=== PATIENT | male | born 1975 | race Caucasian/White ===

== ENCOUNTER 2016-07-08 07:55 | Emergency (ER) | payer OTHER ==
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
[2016-07-08 10:51] VITALS: BP 148/88
== END 2016-07-08 10:41 | disposition home or self-care (01) ==
LOC: ER 07:55
DX: K08.89 Other specified disorders of teeth and supporting structures (principal); F17.210 Nicotine dependence, cigarettes, uncomplicated
CPT/HCPCS: 99282

== ENCOUNTER 2016-10-06 04:35 | Emergency (ER) | payer OTHER ==
--- NOTE | 2016-10-06 05:22 | ER Document Report ---
Doctor's Note Notes: 10/06/16 05:20 I did a quick triage evaluation on patient. Patient is a 41-year-old male who is brought in by medics. The only history I have is that the patient was showing hallucinations and violent behavior. The Counts Include [address] At [facility]'s department was on scene and called paramedics. Paramedics got there and gave him 5 mg of Haldol and 50 mg of Benadryl. Patient is now fully sedated and unable to give me any history. Pupils are equal and reactive to light. Heart is regular rate and rhythm. Lung sanderson are clear. Baseline labs will be ordered. Patient will be reevaluated by oncoming physician when he is awake and no longer sedated.
[2016-10-06 06:24] LABS: ABSOLUTE EOSINOPHILS # (AUTO) 0.1 10^3/uL (0.0-0.6); ABSOLUTE LYMPHOCYTES (AUTO) 1.7 10^3/uL (0.5-4.7); ABSOLUTE MONOCYTES (AUTO) 1.4 10^3/uL (0.1-1.4); BASOPHILS % (AUTO) 0.3 % (0-2); EOSINOPHILS % (AUTO) 0.9 % (0-6); HEMATOCRIT 42.6 % (37.9-51.0); HEMOGLOBIN 14.1 g/dL (13.5-17.0); HGB HCT DIFFERENCE -0.3; LYMPHOCYTES % (AUTO) 12.1 % (13-45); MEAN CORPUSCULAR HEMOGLOBIN 26.7 pg (27.0-33.4); MEAN CORPUSCULAR HGB CONC 33.1 g/dL (32.0-36.0); MEAN CORPUSCULAR VOLUME 81 fl (80-97); MONOCYTES % (AUTO) 9.6 % (3-13); RED BLOOD COUNT 5.28 10^6/uL (4.35-5.55); RED CELL DISTRIBUTION WIDTH 13.4 % (11.5-14.0); SEGMENTED NEUTROPHILS % (AUTO) 77.1 % (42-78); WHITE BLOOD COUNT 14.3 10^3/uL (4.0-10.5)
[2016-10-06 06:39] LABS: ALANINE AMINOTRANSFERASE 45 U/L (21-72); ALBUMIN 4.8 g/dL (3.5-5.0); ALKALINE PHOSPHATASE 95 U/L (38-126); ANION GAP 13 (5-19); ASPARTATE AMINO TRANSFERASE 32 U/L (17-59); BILIRUBIN,DIRECT 0.4 mg/dL (0.0-0.4); BILIRUBIN,TOTAL 0.8 mg/dL (0.2-1.3); BLOOD UREA NITROGEN 24 mg/dL (7-20); CALCIUM 10.1 mg/dL (8.4-10.2); CARBON DIOXIDE 27 mmol/L (22-30); CHLORIDE 103 mmol/L (98-107); CREATININE RESULT 1.18 mg/dL (0.52-1.25); GLUCOSE 104 mg/dL (75-110); POTASSIUM 4.5 mmol/L (3.6-5.0); SODIUM 143.3 mmol/L (137-145); TOTAL PROTEIN 8.2 g/dL (6.3-8.2)
[2016-10-06 06:45] LABS: ALCOHOL < 10 mg/dL (NONE DETECTED)
[2016-10-06 07:26] LABS: URINE BARBITURATES SCREEN NEGATIVE; URINE METHADONE SCREEN NEGATIVE; URINE OPIATES LOW NEGATIVE; URINE PHENCYCLIDINE SCREEN NEGATIVE
[2016-10-06 07:28] LABS: APPEARANCE,URINE SLIGHTLY-CLOUDY; BILIRUBIN,URINE NEGATIVE (NEGATIVE); GLUCOSE, URINE NEGATIVE (NEGATIVE); KETONES,URINE TRACE mg/dL (NEGATIVE); LEUKOCYTE ESTERASE,URINE NEGATIVE (NEGATIVE); NITRITE,URINE NEGATIVE (NEGATIVE); PROTEIN,URINE 30 mg/dL (NEGATIVE); URINE SPECIFIC GRAVITY 1.032; UROBILINOGEN,URINE NEGATIVE mg/dL (<2.0)
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
--- NOTE | 2016-10-06 09:27 | PSYCHOLOGICAL NOTE ---
Psych Note - Psych Note Psych Note: Patient is a 41 year old male who presented reporting , with violent/ aggressive behaviors. Patient wa administered IM medications for his safety and at this time is sleeping. Brief review of patient's EMR suggests roughly 73 prior episodes all with pain related complaints. No prior psych visits were noted. [facility]Will attempt to evaluate at a later time.
[2016-10-06] MEDS ORDERED: VENLAFAXINE HCL 75 MG TABLET PO ONE (12:53)
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
[2016-10-06 15:21] VITALS: BP 116/78
--- NOTE | 2016-10-06 17:08 | EKG REPORT ---
SEVERITY:- OTHERWISE NORMAL ECG - SINUS TACHYCARDIA : Confirmed by: Sarah Robles MD 06-Oct-2016 17:08:08
== END 2016-10-06 15:21 | disposition home or self-care (01) ==
LOC: ER 04:35
DX: F43.10 Post-traumatic stress disorder, unspecified (principal); F39 Unspecified mood [affective] disorder; F17.210 Nicotine dependence, cigarettes, uncomplicated
CPT/HCPCS: 36415; 80053; 80307; 81001; 85025; 93005; 93010; 99285

== ENCOUNTER 2017-12-23 07:19 | Emergency (ER) | payer OTHER ==
[2017-12-23 07:24] VITALS: BP 130/87
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
== END 2017-12-23 08:38 | disposition home or self-care (01) ==
LOC: ER 07:19
DX: K08.89 Other specified disorders of teeth and supporting structures (principal); Z87.891 Personal history of nicotine dependence
CPT/HCPCS: 99282

== ENCOUNTER 2017-12-28 08:14 | Emergency (ER) | payer OTHER ==
[2017-12-28 08:24] VITALS: BP 142/88
[2017-12-28] MEDS ORDERED: LIDOCAINE 2% VISCOUS SOLN 20 ML UDCUP PO ONE (09:17)
[2017-12-28] MEDS ORDERED: IBUPROFEN 800 MG TABLET PO ONE (09:17)
[2017-12-28] MEDS ORDERED: CLINDAMYCIN HCL 150 MG CAPSULE PO ONE (09:18)
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
== END 2017-12-28 09:28 | disposition home or self-care (01) ==
LOC: ER 08:14
DX: K02.9 Dental caries, unspecified (principal); K08.89 Other specified disorders of teeth and supporting structures; F17.210 Nicotine dependence, cigarettes, uncomplicated
CPT/HCPCS: 99282; 99406

== ENCOUNTER 2018-02-21 10:12 | Emergency (ER) | payer OTHER ==
[2018-02-21 10:21] VITALS: BP 144/91
[2018-02-21] MEDS ORDERED: IBUPROFEN 600 MG TABLET PO ONE (10:43)
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
== END 2018-02-21 10:48 | disposition home or self-care (01) ==
LOC: ER 10:12
DX: K08.89 Other specified disorders of teeth and supporting structures (principal); F17.200 Nicotine dependence, unspecified, uncomplicated
CPT/HCPCS: 99282

== ENCOUNTER 2018-04-05 05:33 | Emergency (ER) | payer OTHER ==
[2018-04-05] MEDS ORDERED: VENLAFAXINE HCL 75 MG TABLET PO ONE ×2 (06:59→07:52)
[2018-04-05] MEDS ORDERED: GABAPENTIN 400 MG CAPSULE PO ONE ×2 (07:00→07:53)
[2018-04-05] MEDS ORDERED: VENLAFAXINE HCL 75 MG CAP.SR.24H PO ONE (08:14)
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
[2018-04-05 08:57] VITALS: BP 131/90
== END 2018-04-05 08:58 | disposition home or self-care (01) ==
LOC: ER 05:33
DX: F41.9 Anxiety disorder, unspecified (principal); M79.604 Pain in right leg; G89.29 Other chronic pain; F17.200 Nicotine dependence, unspecified, uncomplicated; Z88.0 Allergy status to penicillin
CPT/HCPCS: 99283